=== PATIENT | male | born 1980 | race Caucasian/White ===

== ENCOUNTER 2025-05-11 07:37 | Emergency (ER) | payer SELFPAY ==
[2025-05-11] VITALS (13 sets, daily range): BP systolic 129–140; BP diastolic 91–92; PULSE 80–89; TEMP 36.7; O2SAT 93–99; BMI 22.4
--- OUTSIDE RECORDS SUMMARY | 2025-05-11 08:14 | XMS_ITS | Clinical Summary ---
Author Organization [facility] tem Address [id number] [address] [place] [address] Care Team Providers Care Joss House Keeper Name Role Phone No Pcp, No Pcp Primary Care Provider Unavailabl e Allergies No known active allergies Medications MedicationSigDispense QuantityRefillsLast FilledStart DateEnd DateStatus alum-mag hydroxide-simeth (MAALOX) 200-200-20 mg/5 mL suspension Indications:Viral gastroenteritisTake 30 mL by mouth in the morning and 30 mL at noon and 30 mL in the evening. Take with meals. 354 mL 08/25/2023ctive Social History Tobacco UseTypesPacks/DayYears UsedDateSmoking Tobacco: NeverSmokeless Tobacco: Never Tobacco Cessation:Counseling Given: Not Answered Alcohol UseStandard Drinks/WeekCommentsNever0 (1 standard drink = 0.6 oz pure alcohol)ChildcareAnswerDate QjcivaasJpogpsqqpRagzrgz13/12/2019EmploymentAnswer Date SbxamwnpEpufuxvribRullpkz62/12/2019Hunger ScreeningAnswerDate Recorded Within the past 12 months we worried whether our food would run out before we got money to buy more.Never True08/25/2023Within the past 12 months the food we bought just didn't last and we didn't have money to get more.Never True 08/25/2023Sex and Gender InformationValueDate RecordedSex Assigned at BirthNot on fileLegal CydXpxd9612/19/2014 12:01 PM EDTGender IdentityNot on fileSexual OrientationNot on file Last Filed Vital Signs Vital SignReadingTime TakenCommentsBlood Nksgedyc352/8904 6:45 PM EDT Exoqu4065 8:42 PM TGCIcndeztgmdv30.7 ??C (98 ??F)08/25/2023 4:05 PM EDT Respiratory Qwry534208/25/2023 8:42 PM EDTOxygen Cwuhkkrraq82%08/25/2023 8:42 PM EDTInhaled Oxygen Concentration--Weight--Height--Body Mass Index-- Plan of Treatment Health MaintenanceDue DateLast DoneCommentsDepression Njhgvdxgg12/10/1995Adult BMI Qffenubdy73/10/2001DTaP,Tdap and Td Vaccines (2 - Tdap) Tobacco Txfjbifmz52OVID-19 Vaccine (2024- season) , 09/27/2020, 09/06/2020Influenza Rtfemeo8901/14/2025 Medical Devices Not on file Insurance Care Teams Team MemberRelationshipSpecialtyStart DateEnd Date No Pcp, [place] [address] PCP - GeneralFamily Medicine08/25/23
--- NOTE | 2025-05-11 08:20 | XR_ITS ---
[facility] [place] [id number] Patient Name: KONRAD OLIVERA MRN: [id number] date: 1980 Sex: M Assigned Patient Location: ED.MAIN Current Patient Location: Accession/Order Number: [id number] Exam Date: 05/11/2025 09:00 Report Date: 05/11/2025 10:09 At the request of: YENNY PARRY DO Procedure: XR chest 1V Plain film chest Single view HISTORY: Shortness of breath COMPARISON: None FINDINGS: SUPPORT DEVICES: None POSTSURGICAL CHANGES: None HEART: Within normal limits PULMONARY HARLEY: Within normal limits MEDIASTINUM: Unremarkable LUNGS AND PLEURA: No acute lung process, pleural effusion or pneumothorax identified. BONY STRUCTURES: Intact ADDITIONAL FINDINGS None XR/XR chest 1V IMPRESSION: No acute process. Impression dictated by: Jhonathan Asher M.D. 05/11/2025 10:09 AM Dictation Location: [place] [address] Electronically authenticated by: [id number] Y Date: 05/11/2025 10:09
--- NOTE | 2025-05-11 08:23 | ECG_ITS ---
[facility] Test Date: 2025-05-11 Pat Name: KONRAD OLIVERA Department: Room: - Gender: Male Tube Roller: : 1980 Requested By: [id number] Order Number: [id number] Reading MD: ILENE VENEGAS M.D. Measurements Intervals Bison Rate: 74 P: 67 KS: 158 QRS: 75 QRSD: 84 T: 69 QT: 346 QTc: 373 Interpretive Statements 1100 Sinus rhythm 2420 RSR (QR) in lead V1/V2, consistent with right ventricular conduction delay 9130 borderline ECG No previous ECG available for comparison Electronically Signed On 05-12-2025 12:58:07 EST by ILENE VENEGAS M.D.
[2025-05-11] MEDS: IPRATROPIUM/ALBUTEROL SULFATE 3 ML AMPUL.NEB IH ×2 (08:40→08:42)
--- NOTE | 2025-05-11 08:41 | ED_ITS ---
HPI HPI - General Adult General Chief complaint: Upper Respiratory Infection Stated complaint: COUGH, FLU-LIKE SYMPTOMS Time Seen by Provider: 05/11/25 07:39 Source: patient Mode of arrival: walk-in Limitations: no limitations History of Present Illness HPI narrative: Patient is a 44-year-old male presenting to the emergency department with a 1 week history of flulike symptoms, cough, and shortness of breath. The patient states he has no chronic medical conditions, though he has not seen a primary care physician in over 30 years. He does smoke a half a pack of cigarettes daily for most of his life. Other than the coughing and shortness of breath, he denies any other symptoms. He has no abdominal pain, nausea, or vomiting. No fevers or chills. No chest pain. He takes no daily supplements or medications. Related Data Previous Rx's ?Medication ?Instructions ?Recorded albuterol sulfate 90 mcg/actuation 2 inh inhalation Q6 H PRN shortness 05/11/25 aerosol inhaler of breath or wheezing #8.5 g susana doxycycline hyclate 100 mg capsule 100 mg PO BID 5 day s #10 caps 05/11/25 prednisone 20 mg tablet 40 mg (2 x 20 mg) PO DAILY 4 days 05/11/25 #8 tabs Allergies Allergy/AdvReac Type Severity Reaction Status Date / Time No Known Drug Allergies Allergy Verified 05/11/25 08:05 Opioid HPI Opioid Management Most Recent Opioid Data: Last Pain Scale 5 Today, 08:05 Review of Systems ROS Status of ROS 10 or more systems reviewed and unremark able except as noted in history and below PFSH PFSH Social History Little interest or pleasure in doing things: not at all Feeling down, depressed, or hopeless: not at all Exam Narrative Exam Narrative: CONSTITUTIONAL: No acute distress, has a pretty significant cough during my exam, speaking in full sentences in no respiratory distress, answering questions and following commands appropriately SKIN: Was warm and dry. EYES: Sclerae white. EARS, NOSE, THROAT: Moist oral mucosa. RESPIRATORY: Diffuse bilateral expiratory wheezes. No use of accessory muscles. Rhonchi throughout the lung smith as well. CARDIOVASCULAR: Normal rate and regular rhythm. There is no S3, S4, murmur, rub. GASTROINTESTINAL: Abdomen is soft, nontender, nondistended. MUSCULOSKELETAL: No peripheral edema. NEUROLOGIC: Patient is awake and alert. Facies were symmetrical. Constitutional Vital Signs, click to edit/add: Last Vital Signs Temp 98.0 F 05/11/25 08:05 Pulse 89 05/11/25 08:05 Resp 22 H 05/11/25 08:05 BP 140/92 H 05/11/25 08:05 Pulse Ox 99 05/11/25 08:32 O2 Del Method Room Air 05/11/25 08:32 Course Vital Signs Vital signs: Vital Signs Temperature 98.0 F 05/11/25 08:05 Pulse Rate 89 05/11/25 08:05 Respiratory Rate 22 H 05/11/25 08:05 Blood Pressure 140/92 H 05/11/25 08:05 Pulse Oximetry 96 05/11/25 08:05 Oxygen Delivery Method Room Air 05/11/25 08:05 Temperature 98.0 F 05/11/25 08:05 Pulse Rate 89 05/11/25 08:05 Respiratory Rate 22 H 05/11/25 08:05 Blood Pressure 140/92 H 05/11/25 08:05 Pulse Oximetry 99 05/11/25 08:32 Oxygen Delivery Method Room Air 05/11/25 08:32 Medical Decision Making [facility] Narrative Medical decision making narrative: Patient is a 44-year-old male, no known medical history other than extensive c igarette use, presenting to the emergency department for evaluation of cough and shortness of breath x 1 week. Vital signs on arrival are significant for hypertension and mild tachypnea, otherwise were within normal limits. He is saturating 99% on room air with bilateral expiratory wheezes and rhonchi. He is in no respiratory distress. Differential diagnose includes COPD exacerbation, pneumonia, pneumothorax, ACS, or other electrolyte/metabolic derangement. IV was established and laboratory studies were obtained. He was treated with nebulized DuoNebs and oral prednisone. 12 Lead EKG: Normal sinus rhythm at a rate of 74. Right axis deviation. No ST segment elevations. QRS, IN, and QTc interval within normal limits. RSR prime configuration in leads V1 and V2 consistent with RBBB. No prior EKG for comparison. Final impression: Normal sinus rhythm with RBBB. No evidence of acute myocardial ischemia. Chest x-ray independently reviewed/interpreted by myself demonstrated no acute cardiopulmonary process. Laboratory studies were unremarkable. No significant electrolyte or metabolic derangement. No evidence of acute kidney injury. No anemia, leukocytosis, or thrombocytopenia. COVID/flu swabs negative. Troponin nonelevated. On reevaluation, patient is breathing comfortably on room air, saturating 98%, and in no acute distress. The patient has no formal diagnosis of COPD, though he has not seen a physician in 36 years . Given his wheezing and smoking history, he likely does have COPD. He was given a prescription for albuterol inhaler, prednisone 40 mg daily x 4 days, and doxycycline 100 mg twice daily x 5 days for atypical pneumonia coverage. He was given information for local PCPs office, instructed to follow-up as soon as possible. Return precautions were given including any new or concerning symptoms. Patient understands and agrees to the plan. FINAL IMPRESSION: #Acute wheezing, likely COPD exacerbation #Acute upper respiratory faction, possible atypical pneumonia DISPOSITION: Discharged home CONDITION: Good Lab Data Lab results reviewed: Yes I reviewed the patient's lab results Labs: Lab Results 05/11/25 05/11/25 Range/Units 08:18 08:44 WBC 6.5 (4.0-11.0) 10^3/uL RBC 5.22 (4.70-6.10) 10^6/uL Hgb 15.2 (14.0-18.0) g/dL Hct 45.1 (42.0-54.0) % MCV 86.4 (80.0-94.0) fL MCH 29.1 (25.9-34.0) pg MCHC 33.7 (29.9-35.2) g/dL RDW 13.6 (11.0-15.0) % Plt Count 246 (150-450) 10^3/uL MPV 9.6 (9.5-13.5) fL Seg Neuts % (Manual) 60.0 (43.0-75.0) Lymphocytes % (Manual) 32.0 (20.5-60.0) % Monocytes % (Manual) 4.0 (1.7-12.0) % Eosinophils % (Manual) 4.0 (0.9-7.0) % Basophils % (Manual) 0.0 L (0.2-2.0) % Neutrophils # (Manual) 3.90 (1.4-6.5) 10^3/uL Lymphocytes # (Manual) 2.08 (1.20-3.80) 10^3/uL Monocytes # (Manual) 0.26 L (0.30-0.80) 10^3/uL Eosinophils # (Manual) 0.26 (0.00-0.70) 10^3/uL Basophils # (Manual) 0.00 (0.00-0.10) 10^3/uL Sodium 143 (136-145) mmol/L Potassium 4.0 (3.5-5.1) mmol/L Chloride 107 (98-107) mmol/L Carbon Dioxide 23.8 (21.0-32.0) mmol/L Anion Gap 16.2 BUN 17.0 (7.0-18.0) mg/dL Creatinine 0.98 (0.70-1.30) mg/dL Est GFR ( Amer) >60 (>=60 mL/min/1.73m^2) Est GFR (Non-Af Amer) >60 (>=60 mL/min/1.73m^2) BUN/Creatinine Ratio 17.3 Glucose 97 (74-106) mg/dL Calcium 9.2 (8.5-10.1) mg/dL Troponin I High Sens 4.0 (4.0-76.1) pg/mL Influenza Type A Ag Negative Influenza Type B Ag Negative SARS-CoV-2 Ag (CV2AG) Negative (NEGATIVE) Imaging Data Chest x-ray: Attestation: I personally reviewed and interpreted this imaging study as follows: ECG Data Attestation: I personally reviewed and interpreted this ECG as follows: Discharge Plan Discharge Chief Complaint: Upper Respiratory Infection Clinical Impression: Upper respiratory infection Patient Disposition: Home, Self-Care Time of Disposition Decision: 09:43 Condition: Good Mode of Transportation: Private Vehicle Prescriptions / Home Meds: New doxycycline hyclate 100 mg capsule 100 mg PO BID 5 Days Qty: 10 0RF prednisone 20 mg tablet 40 mg PO DAILY 4 Days Qty: 8 0RF albuterol sulfate 90 mcg/actuation HFA aerosol inhaler 2 inh inhalation Q6H PRN (Reason: shortness of breath or wheezing) Qty: 8.5 0RF Print Language: Romanian Instructions: Upper Respiratory Infection (ED) Referrals: Naila Batista DO [Physician, Hospitalist] - 1 week Physician,Non-Staff, MD [Primary Care Provider] - 1 week
[2025-05-11] MEDS: PREDNISONE 20 MG TABLET 40 MG PO (08:42)
[2025-05-11 08:51] LABS: SARS-CoV-2 Ag NEGATIVE (NEGATIVE)
[2025-05-11 09:03] LABS: Hematocrit 45.1 % (42.0-54.0); Hemoglobin 15.2 g/dL (14.0-18.0); Mean Corpuscular HGB Conc 33.7 g/dL (29.9-35.2); Mean Corpuscular Hemoglobin 29.1 pg (25.9-34.0); Mean Corpuscular Volume 86.4 fL (80.0-94.0); Platelet Count 246 10^3/uL (150-450); Red Blood Count 5.22 10^6/uL (4.70-6.10); White Blood Count 6.5 10^3/uL (4.0-11.0)
[2025-05-11 09:15] LABS: Anion Gap 16.2; Blood Urea Nitrogen 17.0 mg/dL (7.0-18.0); Calcium 9.2 mg/dL (8.5-10.1); Carbon Dioxide 23.8 mmol/L (21.0-32.0); Chloride 107 mmol/L (98-107); Estimated GFR (African America >60 (>=60 mL/min/1.73m^2); Estimated GFR (Non-African Ame >60 (>=60 mL/min/1.73m^2); Glucose 97 mg/dL (74-106); Potassium 4.0 mmol/L (3.5-5.1); Sodium 143 mmol/L (136-145)
[2025-05-11 09:28] LABS: Segmented Neut Absolute Manual 3.90 10^3/uL (1.4-6.5); Segmented Neutrophils % Manual 60.0 (43.0-75.0)
[2025-05-11 09:29] LABS: Basophils Abs Manual 0.00 10^3/uL (0.00-0.10); Basophils Percent Manual 0.0 % (0.2-2.0); Eosinophils Absolute Manual 0.26 10^3/uL (0.00-0.70); Eosinophils Percent Manual 4.0 % (0.9-7.0); Lymphocytes Absolute Manual 2.08 10^3/uL (1.20-3.80); Lymphocytes Percent Manual 32.0 % (20.5-60.0); Monocytes Absolute Manual 0.26 10^3/uL (0.30-0.80); Monocytes Percent Manual 4.0 % (1.7-12.0)
== END 2025-05-11 10:05 | disposition home or self-care (01) ==
PROVIDERS: Emergency Provider Student in an Organized Health Care Education/Training Program
DX: J06.9 Acute upper respiratory infection, unspecified (principal); R05.9 Cough, unspecified; R06.02 Shortness of breath
CPT/HCPCS: 36415; 71045; 80048; 84484; 85007; 85027; 87804; 87811; 93005; 94640; 99285; J7512